=== PATIENT | female | born 1965 | race Caucasian/White ===

== ENCOUNTER 2017-04-26 08:54 | Emergency (ER) | payer OTHER ==
[~2017-04-26] VITALS: Ht 162.6 cm; Wt 71.2 kg
[~2017-04-26 08:54] MED LIST: BENAZEPRIL; ENJUVIA; LORATIDINE; WELLBUTRIN
[2017-04-26] MEDS ORDERED: AMLODIPINE BES2.5 MG (09:35)
[2017-04-26] MEDS ORDERED: SIMVASTATIN20 MG PO (09:35)
[2017-04-26 11:18] VITALS: BP 122/78
== END 2017-04-26 11:26 | disposition home or self-care (01) ==
LOC: FSED 08:54
DX: M54.2 Cervicalgia (principal); S16.1XXA Strain of muscle, fascia and tendon at neck level, initial encounter; V43.52XA Car driver injured in collision with other type car in traffic accident, initial encounter; Y92.488 Other paved roadways as the place of occurrence of the external cause
CPT/HCPCS: 72125; 99283